=== PATIENT | female | born 1945 | race Caucasian/White ===

== ENCOUNTER 2020-07-06 09:45 | Emergency (ER) | payer MEDICARE, BC ==
[~2020-07-06] VITALS: Ht 160 cm; Wt 113.6 kg
[~2020-07-06 09:45] MED LIST: ALBUTEROL0.83 MG/ML IH; ARTHROTEC 550 MG/TAB; ARTHROTEC 775 MG/TAB PO; ASPIRIN 32325 MG/TAB PO; ATACAND32 MG PO; BACTRIM DS 8001 TAB PO; CEPHALEXIN500 M1 PO; COLACE 100100 MG/CAP PO; DIOVAN 40MG40 MG PO; DULCOLAX S10 MG/SUPP RC; ESTRACE0.5 MG PO; FLEXERIL 1010 MG/TAB PO; FLEXERIL5 MG PO; FLONASE NASAL S16 GM NS; IMITREX50 MG PO; K-DUR 2020 MEQ PO; K-TAB20 PO; LASIX 20MG TABL20 MG PO; LOVENOX 4040 MG/0.4 SQ; NORMODYNE100 MG PO; NORVASC2.5 MG; NORVASC2.5 MG PO; PEPCID 20MG TAB20 MG PO; PREMARIN .3MG0.3 MG PO; PROAIR HFA0.09 MG/AC IH; ROXICODONE 55 MG/TAB PO; SEPTRA DS 8001 TAB PO; TAMIFLU 75MG75 MG PO; TRANDATE 100MG100 MG PO
[2020-07-06 09:56] VITALS: TEMP 97.9
[2020-07-06] MEDS ORDERED: DIOVAN 160MG160 MG PO (10:14)
[2020-07-06 10:17] LABS: BASO # 0.1 (0.0-0.2); BASO % 0.6 % (0.0-2.0); EOS # 0.1 (0.0-0.7); EOS % 1.5 % (0-4.0); GRAN # 6.2 (1.4-6.5); GRAN % 77.5 % (42.2-75.2); HEMATOCRIT 40.9 % (37.0-47.0); HEMOGLOBIN 13.5 g/dl (12.5-16.0); LYMPH % 12.3 % (20.0-51.0); MEAN CELL VOLUME 93 fl (80.0-100.0); MEAN CORPUSCULAR HEMOGLOBIN 31 pg (27.0-31.0); MEAN CORPUSCULAR HGB CONC 33 g/dl (33.0-37.0); MEAN PLATELET VOLUME 10.1 fl (7.4-10.4); MONO # 0.6 (0.1-0.6); MONO % 7.8 % (1.7-9.3); PLATELET COUNT 192 K/mm3 (130-400); RED BLOOD COUNT 4.39 M/mm3 (4.10-5.30); REDCELL DISTRIBUTION WIDTH-CV 13.6 % (11.5-14.5)
[2020-07-06 10:36] LABS: ALBUMIN 3.9 gm/dL (3.5-5.0); BILIRUBIN,TOTAL 1.8 mg/dL (0.0-1.0); CALCIUM 9.3 mg/dL (8.4-10.2); CREATININE, serum 0.63 (0.52-1.25); POTASSIUM 3.8 mmol/L (3.4-5.0); TOTAL PROTEIN 6.9 gm/dL (6.4-8.2)
[2020-07-06 10:44] LABS: INR 1.1 (0.8-3.0); PROTHROMBIN TIME 12.6 SECONDS (9.7-12.8)
[2020-07-06 10:47] LABS: PARTIAL THROMBOPLASTIN TIME 37.7 SECONDS (26.0-37.0); TROPONIN-I 0.012 ng/mL (0.000-0.035)
[2020-07-06] MEDS ORDERED: LASIX 40MG TABL40 MG PO (14:39)
[2020-07-06 15:37] VITALS: BP 155/83; PULSE 69
== END 2020-07-06 15:38 | disposition home or self-care (01) ==
LOC: COL.ER 09:45
PROVIDERS: Family Medicine
DX: I11.0 Hypertensive heart disease with heart failure (principal); Z20.822 Contact with and (suspected) exposure to COVID-19; Z88.6 Allergy status to analgesic agent; Z88.1 Allergy status to other antibiotic agents; Z79.82 Long term (current) use of aspirin
CPT/HCPCS: J1940; Q9967

== ENCOUNTER 2020-09-22 07:01 | Day surgery (SDC) | payer MEDICARE, BC ==
[2020-09-22] VITALS (21 sets, daily range): BP systolic 88–152; BP diastolic 45–74; PULSE 51–82; TEMP 97.5–98.1
[~2020-09-22] VITALS: Ht 160.1 cm; Wt 111.0 kg
[~2020-09-22 07:01] MED LIST changes: +DIOVAN 160MG160 MG PO; +LASIX 40MG TABL40 MG PO
[2020-09-22 08:11] LABS: HEMOGLOBIN 13.2 g/dl (12.5-16.0); MEAN CELL VOLUME 90 fl (80.0-100.0); MEAN CORPUSCULAR HEMOGLOBIN 31 pg (27.0-31.0); MEAN CORPUSCULAR HGB CONC 34 g/dl (33.0-37.0); MEAN PLATELET VOLUME 10.2 fl (7.4-10.4); PLATELET COUNT 206 K/mm3 (130-400); RED BLOOD COUNT 4.33 M/mm3 (4.10-5.30); REDCELL DISTRIBUTION WIDTH-CV 13.6 % (11.5-14.5)
[2020-09-22 08:20] LABS: PROTHROMBIN TIME 11.5 SECONDS (9.7-12.8)
[2020-09-22 08:22] LABS: BILIRUBIN,TOTAL 0.8 mg/dL (0.0-1.0); CALCIUM 9.3 mg/dL (8.4-10.2); CREATININE, serum 0.67 (0.52-1.25); MAGNESIUM 1.8 mg/dL (1.6-2.3)
[2020-09-22] MEDS ORDERED: LASIX 20MG TABL20 MG PO (08:37)
[2020-09-22] MEDS ORDERED: VOLTAREN 75 DR75 MG PO (08:37)
[2020-09-22] MEDS ORDERED: COREG 3.123.125 MG/T PO (08:37)
[2020-09-22] MEDS ORDERED: ESTRACE 1MG1 MG/TAB PO (08:38)
[2020-09-22] MEDS ORDERED: ROXICODONE 55 MG/TAB PO (08:38)
[2020-09-22] MEDS ORDERED: VITAMIND3 5000 PO (08:39)
[2020-09-22] MEDS ORDERED: ONE-A-DAY ESSE1 EACH PO (08:39)
[2020-09-22] MEDS ORDERED: NATURAL IRON65 MG PO (08:40)
[2020-09-22] MEDS ORDERED: FOLIC ACID0.4 MG PO (08:40)
[2020-09-22] MEDS ORDERED: K-DUR 10 MEQ T10 MEQ PO (08:41)
--- NOTE | 2020-09-22 09:27 | NUR ---
SEE MERGE DOCUMENTATION FOR MEDICATION ADMINISTRATION TIMES AND INTRA/POST PROCEDURE SEDATION ASSESSMENTS. PLAN FOR RIGHT FEMORAL VENOUS AND ARTERIAL ACCESS.
--- NOTE | 2020-09-22 12:53 | NUR ---
While pressure being held on femoral artery site, pt experiencing hypotension with SBP 90's and mild nausea. Pt also with full bladder and unable to void on bedpan. Verbal order from Dr Daniel to insert walker catheter. Following this and when hemostasis obtain and pressure released, BP's improving to 105/56. Pt without complaints. On arrival to , BP 84/46. All other VS's unchanged from baseline. Pt c/o cramping to left leg that is normal. Denies back/flank pain, nausea, or SOA. No chest pain reported. Dr Rodas notified of BP and current pt status. Order for 500 mL fluid bolus. Other post-procedure orders to be entered. This was relayed to JUDI Peraza in [facility]. Pt femoral site remains stable on handoff with DP pulse palpable. BP 98/50 and pt stable when this RN departing.
--- NOTE | 2020-09-22 14:00 | NUR ---
500 ml bolus completed with NS bag previously hung for procedure. Rate decreased to 75ml/hr. BPs improved. Nausea improved. Call light in reach.
--- NOTE | 2020-09-22 16:20 | NUR ---
Pt taken to medical unit by bed for admission to 315 at 1610. Pt was able to transfer with standby assistance from bed and ambulate into room and to inpt bed following 4 hr flattime. Dressing to rt groin puncture site remains clean, dry and intact, and area remains soft to palpation following activity. Rt pedal pulse remain easily palpable. Phone and bedside report given to JUDI Kay. Pt's personal belongings were taken to inpt floor with her.
--- NOTE | 2020-09-22 16:28 | NUR ---
Pt arrived to floor, transferred to room bed, face to face updates done. oriented Pt to room, needs met.
--- NOTE | 2020-09-22 21:46 | NUR ---
Patient laying in bed upon enter. Patient A/Ox4. Patient denies any pain or discomfort. Denies chest pain, SOB, N/V, or dizziness. Right femoral cardiac cath site dressing C/D/I. Cath site skin soft with no hematoma. John catheter in place and draining tea color urine. All scheduled meds given per JUL. Call light within reach. Patient denies any needs at this time.
[2020-09-23 03:22] VITALS: BP 140/60; PULSE 62; TEMP 97.5
[2020-09-23 06:28] LABS: BASO % 0.5 % (0.0-2.0); EOS # 0.2 (0.0-0.7); EOS % 2.3 % (0-4.0); GRAN # 5.5 (1.4-6.5); LYMPH # 1.2 (1.2-3.4); LYMPH % 15.6 % (20.0-51.0); MEAN CELL VOLUME 92 fl (80.0-100.0); MEAN CORPUSCULAR HEMOGLOBIN 30 pg (27.0-31.0); MEAN CORPUSCULAR HGB CONC 33 g/dl (33.0-37.0); MEAN PLATELET VOLUME 10.6 fl (7.4-10.4); MONO # 0.8 (0.1-0.6); MONO % 10.2 % (1.7-9.3); PLATELET COUNT 189 K/mm3 (130-400); RED BLOOD COUNT 3.99 M/mm3 (4.10-5.30)
[2020-09-23 06:45] LABS: CALCIUM 8.7 mg/dL (8.4-10.2); CREATININE, serum 0.64 (0.52-1.25); POTASSIUM 3.8 mmol/L (3.4-5.0)
[2020-09-23 06:52] LABS: HEMATOCRIT 36.5 % (37.0-47.0)
[2020-09-23 08:55] VITALS: BP 109/52; PULSE 61; TEMP 97.8
[2020-09-23] MEDS ORDERED: BRILINTA90 MG PO (10:39)
[2020-09-23] MEDS ORDERED: ASPIRIN 81M81 MG/TA2 PO (10:40)
[2020-09-23] MEDS ORDERED: PRAVACHOL 40MG40 MG PO (10:42)
[2020-09-23 11:35] VITALS: BP 116/59; PULSE 64; TEMP 97.8
--- NOTE | 2020-09-23 12:57 | NUR ---
Career Law Clerk offered a prayer andsupport with patient.
--- NOTE | 2020-09-23 13:15 | NUR ---
Pt discharged to home, discussed discharge information with Pt, answered questions. Pt escorted to entrance via WC by PCT
== END 2020-09-23 13:15 | disposition home or self-care (01) ==
LOC: COL.CAR 07:01 → MEDICAL 15:30 → COL.CAR 09-23 13:15
PROVIDERS: Internal Medicine Cardiovascular Disease
DX: I25.89 Other forms of chronic ischemic heart disease (principal); I25.10 Atherosclerotic heart disease of native coronary artery without angina pectoris; I44.0 Atrioventricular block, first degree; I10 Essential (primary) hypertension; E66.01 Morbid (severe) obesity due to excess calories; Z68.41 Body mass index [BMI] 40.0-44.9, adult; Z79.1 Long term (current) use of non-steroidal anti-inflammatories (NSAID); Z79.899 Other long term (current) drug therapy; Z99.89 Dependence on other enabling machines and devices
CPT/HCPCS: OP; C1725; C1760; C1769; C1874; C1887; C1894; C9600; C9601; J0360; J1644; J1940; J2250; J2270; J2405; J3010; Q9967

== ENCOUNTER 2021-01-05 17:28 | Outpatient (RCR) | payer MEDICARE, BC ==
[~2021-01-05 17:28] MED LIST changes: +ASPIRIN 81M81 MG/TA2 PO; +BRILINTA90 MG PO; +COREG 3.123.125 MG/T PO; +ESTRACE 1MG1 MG/TAB PO; +FOLIC ACID0.4 MG PO; +K-DUR 10 MEQ T10 MEQ PO; +NATURAL IRON65 MG PO; +ONE-A-DAY ESSE1 EACH PO; +PRAVACHOL 40MG40 MG PO; +VITAMIND3 5000 PO; +VOLTAREN 75 DR75 MG PO
== END 2021-01-07 | disposition home or self-care (01) ==
LOC: COL.CR
DX: Z48.812 Encounter for surgical aftercare following surgery on the circulatory system (principal); Z95.5 Presence of coronary angioplasty implant and graft

== ENCOUNTER 2021-01-17 14:13 | Outpatient (RCR) | payer MEDICARE, BC | END 2021-01-19 17:02 | disposition home or self-care (01) | LOC: COL.CR 14:13 | DX: Z48.812 Encounter for surgical aftercare following surgery on the circulatory system (principal); Z95.5 Presence of coronary angioplasty implant and graft ==

== ENCOUNTER 2021-02-13 14:51 | Emergency (ER) | payer MEDICARE, BC ==
[~2021-02-13] VITALS: Ht 160 cm; Wt 108.6 kg
[2021-02-13 14:57] VITALS: TEMP 98.4
[2021-02-13] MEDS ORDERED: KAPSPARGO SPRIN25 MG PO (15:16)
[2021-02-13 18:07] VITALS: BP 155/75; PULSE 57
== END 2021-02-13 18:11 | disposition home or self-care (01) ==
LOC: COL.ER 14:51
DX: T18.128A Food in esophagus causing other injury, initial encounter (principal); R13.12 Dysphagia, oropharyngeal phase; K44.9 Diaphragmatic hernia without obstruction or gangrene; K22.2 Esophageal obstruction; K21.00 Gastro-esophageal reflux disease with esophagitis, without bleeding; I10 Essential (primary) hypertension; I25.10 Atherosclerotic heart disease of native coronary artery without angina pectoris; Z79.82 Long term (current) use of aspirin; Z79.899 Other long term (current) drug therapy; X58.XXXA Exposure to other specified factors, initial encounter
CPT/HCPCS: J2405; J7120

== ENCOUNTER 2021-09-03 08:38 | Outpatient (RCR) | payer SELFPAY ==
[~2021-09-03 08:38] MED LIST changes: +KAPSPARGO SPRIN25 MG PO
== END 2021-10-02 ==
LOC: COL.CR
DX: Z29.8 Encounter for other specified prophylactic measures (principal)

== ENCOUNTER 2021-10-03 02:30 | Outpatient (RCR) | payer SELFPAY | END 2021-11-01 | LOC: COL.CR | DX: Z29.8 Encounter for other specified prophylactic measures (principal) ==